=== PATIENT | male | born 1985 | race African-American/Black ===

== ENCOUNTER 2025-04-13 12:22 | Emergency (ER) | payer BC, SELFPAY ==
[2025-04-13 12:24] VITALS: BP 137/95
--- NOTE | 2025-04-13 13:11 | ED.GENMED ---
History of Present Illness
General
Chief Complaint: Musculo-Skeletal Complaint
Time Seen by Provider: 04/13/25 12:37
History of Present Illness
History of Present Illness:
39-year-old male without significant past medical history presenting to the emergency department for pain at the fourth MCP joint. Patient reports that the swelling to the area of started about 4 days ago, however pain increased last night. Denies
any inciting injury or trauma. Denies fever. Denies any known bug bite. Denies numbness or tingling. Notes pain with flexion of the digit. Denies any history of gout, however does note alcohol usage. He feels the pain is radiating up his arm.
Denies additional acute medical complaints
Past History
Past History
ED Past Medical History: None
Social History
Tobacco: Non-smoker
Alcohol: Occasional
Family History
Family History: Negative Diabetes, Hypertension or CAD
Phy Exam
Physical Exam
Physical Exam:
General: Well-appearing, no clinical signs of dehydration, nontoxic and in no acute distress
HEENT: protecting airway
Neck: appears supple
CV: Normal heart rate
Resp: No accessory muscle use, no increased work of breathing
Abd: no distension
Extremities: No deformities. Minimal swelling to the right fourth MCP amount of erythema. Tenderness to the fourth MCP. No fusiform swelling to the digit. Range of motion grossly intact. Distal sensation intact.
Neuro: alert, no focal neurologic deficit
: deferred
Rectal: deferred
Psych: Normal affect
Skin: Intact
Course
Orders/Labs/Results
Orders:
Orders
04/13/25 12:35
CR Hand - Right Min 3 Views Urgent
Reason For Exam: right ring knuckle pain and swelling
04/13/25 13:09
Prednisone [Deltasone] 40 mg PO NOW STA
04/13/25 13:10
Cephalexin Monohydrate [Keflex] 500 mg PO NOW STA
Vital Signs
Initial and Last Documented VS:
Initial Vital Signs
Temp Pulse Resp BP Pulse Ox
98.3 F 86 16 137/95 98
04/13/25 12:24 04/13/25 12:24 04/13/25 12:24 04/13/25 12:24 04/13/25 12:24
Last Documented Vital Signs
Temp Pulse Resp BP Pulse Ox
98.3 F 86 16 137/95 98
04/13/25 12:24 04/13/25 12:24 04/13/25 12:24 04/13/25 12:24 04/13/25 13:14
MDM/Problems Addressed
MDM/Problems Addressed:
39-year-old male presenting to the emergency department for isolated pain and swelling to the right fourth MCP. Vital signs are normal.
On exam, patient is resting comfortably, no acute distress or discomfort. Benign examination of the hand with minimal swelling to the right fourth MCP, tenderness palpation. Differential considerations include gout versus cellulitis with some
scant erythema tracking up the hand. Lower suspicion for flexor tenosynovitis, negative kanaval signs. Lower suspicion for fracture or malalignment given absence of trauma. Will send screening x-ray. Ultimately suspect possible gout, does note
frequent alcohol usage and isolated to one joint with some mild erythema. Will start on steroids. Given potential for infection, will also starting Keflex. Otherwise feel stable for discharge strict return precautions communicated and patient
verbalized understanding.
*Pulse Oximetry
SaO2: 98
Oxygen Mode of Delivery: Room air
Patient hypoxic: no
*Critical Care Note
Total Time (30-74mins, 75-104mins- exclusive of procedures): Not Applicable
ED Attending Note
-
Portions of this chart may have been created with voice recognition software.� Occasional wrong word or��sound alike� substitutions may have occurred due to the inherent limitations of voice recognition software.
Discharge Plan
Departure
Referrals:
NONE,* [Family Provider, Internal Medicine]
Interventions
Interventions:
*Risk Screen - Suicide Last Done: 04/13/25 12:24
*Neglect/Abuse Screening Last Done: 04/13/25 12:24
Discharge Date and Time
Print Language: TURKISH
[2025-04-13] MEDS: KEFLEX 500 MG PO (13:27)
[2025-04-13] MEDS: DELTASONE 40 MG PO (13:27)
== END 2025-04-13 13:47 | disposition home or self-care (01) ==
LOC: EMR 12:22
PROVIDERS: EMERGENCY PHYSICIAN Student in an Organized Health Care Education/Training Program
DX: M79.644 Pain in right finger(s) (principal); M79.89 Other specified soft tissue disorders
CPT/HCPCS: 99283; 73130